=== PATIENT | female | born 1995 | race Caucasian/White ===

== ENCOUNTER 2021-05-01 05:45 | Emergency (ER) | payer OTHER, SELFPAY ==
[2021-05-01 06:28] VITALS: BP 112/60; PULSE 72; RESP 18; TEMP 36.8; O2SAT 100; BMI 30.2
--- NOTE | 2021-05-01 06:38 | ED_ITS ---
HPI - Female Genitourinary General Chief complaint: Urogenital-Female Stated complaint: uro-genital, abd pain Time Seen by Provider: 05/01/21 06:38 Source: patient Mode of arrival: ambulatory Limitations: no limitations History of Present Illness MD elicited complaint: vaginal bleeding, pelvic pain and other (burning tingling in vaginal area) Onset (ago): day(s) (7) Severity: mild Quality of pain: dull Consistency: intermittent Vaginal discharge: none Vaginal bleeding: scant Exacerbating factors: none Relieving factors: none Associated symptoms: denies other symptoms Treatment prior to arrival: none Sexual activity: Yes Related Data Previous Rx's Medication Instructions Recorded doxycycline hyclate 100 mg capsule 100 mg PO BID 7 Days #14 cap 05/01/21 fluconazole 150 mg tablet 150 mg PO DAILY #1 tab 05/01/21 (Diflucan) nitrofurantoin 100 mg PO BID 5 Days #10 cap 05/01/21 monohydrate/macrocrystals 100 mg capsule (Macrobid) ondansetron 4 mg disintegrating 4 mg PO Q8H PRN #20 tab 05/01/21 tablet Allergies Allergy/AdvReac Type Severity Reaction Status Date / Time morphine [MORPHINE] Allergy Unknown HIVES Verified 05/01/21 06:28 Review of Systems Review of Systems: Constitutional : No Fever, No Chills ENT/Mouth : No sore throat, No Rhinorrhea Eyes: No Eye Pain, No Swelling Cardiovascular : No Chest Pain, No SOB Respiratory : No Cough, No Sputum, No Wheezing Gastrointestinal : No Nausea, No Vomiting, No Diarrhea, No abdominal Pain, No Hematochezia, No Melena Genitourinary : No Dysuria, No Urinary Frequency, No Hematuria, pos scant irreg vag bleeding Musculoskeletal : No joint pain, No Myalgias, No Joint Swelling Skin : No Skin Lesions, No rash PMFSH Past Medical History Attestation statement: The following information was validated with the patient. Medical History No active medical problems Social History Social History Alcohol intake: current Alcohol intake frequency: a few times a month Patient Tobacco Use Status: Never used Tobacco Substance Use Type: Marijuana Substance Use Frequency: Occasionally Advance Directives: No Advance Directives Information Provided: Yes Patient : No Physical Exam Vital Signs: Vital Signs: Last Vital Signs Temp 98.3 F 05/01/21 06:28 Pulse 72 05/01/21 06:28 Resp 18 05/01/21 06:28 BP 112/60 05/01/21 06:28 Pulse Ox 100 05/01/21 06:28 Body Mass Index 30.2 Appearance: Alert. Oriented X3. No acute distress. Eyes: Pupils equal, round and reactive to light. ENT: Pharynx normal. Neck: Normal inspection. Neck supple. CVS: Normal heart rate and rhythm. Pulses normal. Respiratory: No respiratory distress. Breath sounds normal. Abdomen: Soft and nontender. Skin: Skin warm and dry. Normal skin color. Normal skin turgor. Extremities: No lower extremity edema. No calf ttp Neuro: Oriented X 3. No motor deficit. No sensory deficit. Course Course Course Narrative: neg test - proph treatment for STI MDM - Female Genitourinary MDM Narrative Medical decision making narrative: 26 yo female with no sig PMH here with vaginal tingling, irregular periods for 1 week - abdominal exam is soft and bening. Will obtain UA/UPT swab for STI - she does want treatment - this is pending UPT. Doubt ectopic/appendicitis/TOA. Lab Data Labs: Lab Results 05/01/21 05/01/21 Range/Units 06:57 06:57 Urine Color YELLOW Urine Appearance CLOUDY Urine pH 6.0 (5.0-8.0) Ur Specific [place] 1.025 (1.005-1.025) Urine Protein 1+ H (NEG-TRACE) MG/DL Urine Glucose (UA) NEG (NEG) MG/DL Urine Ketones NEG (NEG) MG/DL Urine Blood 1+ H (NEG) Urine Nitrite NEG (NEG) Ur Leukocyte Esterase 2+ H (NEG) Urine RBC 5-9 H (0) /HPF Urine WBC 76-150 H (0-4) /HPF Ur Squamous Epith Cells TRACE /LPF Urine Bacteria TRACE /LPF Urine Test NEGATIVE (NEGATIVE) Discharge Plan Discharge Clinical Impression: Vaginitis Qualifiers: Chronicity: acute Qualified Code(s): N76.0 - Acute vaginitis Urinary tract infection Qualifiers: Urinary tract infection type: acute cystitis Hematuria presence: with hematuria Qualified Code(s): N30.01 - Acute cystitis with hematuria Patient Disposition: Home, Self-Care Instructions: Sexually Transmitted Diseases (ED), Urinary Tract Infection in Women (ED) Additional Instructions: return to ED for any worsening symptoms or concerns your chlamydia and gonorrhea tests are pending, you have a urinary tract infection. you are being treated for possible STD as well as urine infection talk to your partner they should get tested too. if you both have an infection and are not treated you will pass it back and forth for more testing such as HIV, syphillis [facility] Prescriptions: New doxycycline hyclate 100 mg capsule 100 mg PO BID 7 Days Qty: 14 RF: 0 nitrofurantoin monohyd/m-cryst [Macrobid] 100 mg capsule 100 mg PO BID 5 Days Qty: 10 RF: 0 ondansetron 4 mg tablet,disintegrating 4 mg PO Q8H PRN (Reason: nausea and vomiting) Qty: 20 RF: 0 fluconazole [Diflucan] 150 mg tablet 150 mg PO DAILY Qty: 1 RF: 0 Stand Alone Forms: Work/School Release
[2021-05-01 07:10] LABS: Appearance Urine CLOUDY; Color Urine YELLOW; Glucose Urine UA NEG (NEG); Leukocyte Esterase Urine 2+ (NEG); Nitrite Urine NEG (NEG); Specific Gravity - Urine 1.025 (1.005-1.025); UACC Culture Trigger YES; Urine Blood 1+ (NEG); Urine Ketones NEG (NEG); Urine Protein 1+ MG/DL (NEG-TRACE)
[2021-05-01 07:13] LABS: UPreg QC Valid YES; Urine Pregnancy NEGATIVE (NEGATIVE)
[2021-05-01 07:25] LABS: Bacteria Urine TRACE /LPF; Squamous Epithelial Cell Urine TRACE /LPF
[2021-05-01] MEDS: cefTRIAXone sodium 500 MG, Lidocaine HCl 1 % MPF 1 ML IM (07:28)
[2021-05-01 09:59] LABS: CT PCR NOT DETECTED (Not Detect.); NG PCR NOT DETECTED (Not Detect.)
[2021-05-01 11:42] LABS: BV Int Neg Control Negative (Negative); BV Int Pos Control Positive (Positive)
== END 2021-05-01 07:39 | disposition home or self-care (01) ==
PROVIDERS: Emergency Provider Emergency Medicine
DX: N76.0 Acute vaginitis (principal); N30.01 Acute cystitis with hematuria; Z79.899 Other long term (current) drug therapy
CPT/HCPCS: 81001; 81025; 87086; 87088; 87186; 87480; 87491; 87510; 87591; 87660; 96372; 99284; J0696

== ENCOUNTER 2022-05-06 16:07 | Emergency (ER) | payer OTHER, SELFPAY ==
[2022-05-06 17:27] VITALS: BP 152/98; PULSE 75; RESP 18; TEMP 37.2; O2SAT 100; BMI 31.4
[2022-05-06 17:53] LABS: Appearance Urine Cloudy; Color Urine Yellow; Glucose Urine UA Negative (Negative); Leukocyte Esterase Urine Trace (Negative); Nitrite Urine Negative (Negative); PH 7.5 (5.0-9.0); UMIC TRIGGER UACC YES; Urine Blood Negative (Negative); Urine Ketones Trace mg/dL (Negative); Urine Protein Negative (Neg-Trace)
[2022-05-06 17:58] LABS: Bacteria Urine 1+ (None Seen); Hyaline Casts Urine 0-2 /LPF (0-2); RBC Urine 0-2 /HPF (0-2); WBC Urine 0-5 /HPF (0-5)
--- NOTE | 2022-05-06 18:39 | ED_ITS ---
HPI - Female Genitourinary General Chief complaint: Urogenital-Female Stated complaint: STD Check Time Seen by Provider: 05/06/22 16:41 Source: patient Mode of arrival: ambulatory Limitations: no limitations History of Present Illness HPI Narrative: This is a 27-year-old female presenting to the emergency department requesting STD testing. Patient tells me that for the past few days she feels as though her urine has been different foggy , she reports stinging, burning, and overall discomfort while urinating. Partner with similar sx. She tells me that her partner may have an STD, unsure which one. Denies fevers, chills, rash, nausea, vomiting, abdominal pain, chest pain, shortness of breath, vaginal bleeding and vaginal discharge Related Data Previous Rx's Medication Instructions Recorded doxycycline hyclate 100 mg capsule 100 mg PO BID 7 days #14 caps 05/01/21 fluconazole 150 mg tablet 150 mg PO DAILY #1 tab 05/01/21 (Diflucan) nitrofurantoin 100 mg PO BID 5 days #10 caps 05/01/21 monohydrate/macrocrystals 100 mg capsule (Macrobid) ondansetron 4 mg disintegrating 4 mg PO Q8H PRN nausea and 05/01/21 tablet vomiting #20 tabs metronidazole 500 mg tablet 500 mg PO BID 7 days #14 tabs 05/03/21 (Flagyl) doxycycline hyclate 100 mg capsule 100 mg PO BID 7 days #14 caps 05/06/22 metronidazole 500 mg tablet 500 mg PO BID 7 days #14 tabs 05/06/22 Allergies Allergy/AdvReac Type Severity Reaction Status Date / Time morphine [MORPHINE] Allergy Unknown HIVES Verified 05/01/21 06:28 Review of Systems Review of Systems: Constitutional : No Weight loss, No Fever, No Chills, No Fatigue, No Malaise ENT/Mouth : No sore throat, No Rhinorrhea Eyes: No Eye Pain, No Swelling, No Redness Cardiovascular : No Chest Pain, No SOB, No Dyspnea on Exertion, No Orthopnea, No Edema, No Palpitations Respiratory : No Cough, No Sputum, No Wheezing Gastrointestinal : No Nausea, No Vomiting, No Diarrhea, No Constipation, No abdominal Pain, No Hematochezia, No Melena Genitourinary : No Dysuria, No Urinary Frequency, No Hematuria, Musculoskeletal : No joint pain, No Myalgias, No Joint Swelling Skin : No Skin Lesions, No rash Neuro : No Weakness, No Numbness, No Dizziness, No Headache Psych : No Anxiety/Panic, No Depression All other systems reviewed and are negative Yes all other systems are reviewed and are negative [facility] Past Medical History Attestation statement: The following information was validated with the patient. Source: old records reviewed and nursing notes reviewed Medical History No active medical problems Social History Social History Alcohol intake: current Alcohol intake frequency: a few times a month Patient Tobacco Use Status: Never used Tobacco Substance Use Type: Marijuana Advance Directives: No Advance Directives Information Provided: No Physical Exam Vital Signs: Vital Signs: Last Vital Signs Temp 98.9 F 05/06/22 17:27 Pulse 75 05/06/22 17:27 Resp 18 05/06/22 17:27 BP 152/98 H 05/06/22 17:27 Pulse Ox 100 05/06/22 17:27 O2 Del Method 05/06/22 17:27 BMI result Body Mass Index 31.4 vss Appearance: Alert.? Oriented X3.? No acute distress.? Head: Normocephalic, atraumatic, no step-offs or deformities Eyes: Pupils equal, round and reactive to light.? Neck: Normal inspection.? Neck supple.? CVS: Normal heart rate and rhythm.? Pulses normal.? Respiratory: No respiratory distress.? Breath sounds normal.? Abdomen: Soft and nontender.? Skin: Skin warm and dry.? Normal skin color.? Normal skin turgor.? Extremities: No lower extremity edema.? No calf ttp. 5/5 strength to bilateral upper and lower extremities Neuro: Oriented X 3.? No motor deficit.? No sensory deficit. CN 2-12 intact Course Reevaluation(s) Reevaluation #1: No signs of UTI. Antibiotics were given here in the emergency department, patient tolerated well. At this time patient will be discharged home with antibiotics following CDC guidelines. Advised to return with new or worsening symptoms, outlined worrisome signs and symptoms on discharge. Comfortable discharge home with prompt PCP follow-up. Time: 18:45 MDM - Female Genitourinary MDM Narrative Medical decision making narrative: [birth year]39 27-year-old female presenting for STD testing, potential exposure. Unsure to which STD. Physical examination benign. Plan at this time is to order gonorrhea, chlamydia. Will treat prophylactically for gonorrhea, chlamydia, Trichomonas. Patient agrees to prophylactic treatment for gonorrhea, chlamydia and trichomonas. 500mg IM ceftriaxone has been given here and scripts for doxycycline 100 mg po BID X 7 days and metronidazole 500 mg po BID X 7 days have been given to the patient. Educated on safe sex practices, full pannel STD testing and speaking to? partners on possible STD. Medical Records Attestation: I reviewed the patient's medical records. Lab Data Attestation: I reviewed the patient's lab results. Labs: Lab Results 05/06/22 Range/Units 17:38 Urine Color Yellow Urine Appearance Cloudy Urine pH 7.5 (5.0-9.0) Ur Specific [place] 1.010 (1.005-1.025) Urine Protein Negative (Neg-Trace) mg/dL Urine Glucose (UA) Negative (Negative) mg/dL Urine Ketones Trace (Negative) mg/dL Urine Blood Negative (Negative) Urine Nitrite Negative (Negative) Ur Leukocyte Esterase Trace H (Negative) Urine RBC 0-2 (0-2) /HPF Urine WBC 0-5 (0-5) /HPF Ur Squamous Epith Cells 3-5 (0-2) /HPF Urine Bacteria 1+ (None Seen) Hyaline Casts 0-2 (0-2) /LPF Critical Care Time Critical Care Time Critical Care Time: No Discharge Plan Discharge Clinical Impression: Encounter for assessment of STD exposure Patient Disposition: Home, Self-Care Additional Instructions: Take your medications as prescribed. If you were prescribed antibiotics today, it is important that you take your medication to their entirety, do not skip any doses, do not finish them early. Follow-up with your primary care provider this week. Return to the emergency department with new or worsening symptoms. Such as fevers, chills, chest pain, shortness of breath, nausea, vomiting, dizziness, headache, vision changes, lethargy In case of emergency call 911 You were treated here today with ceftriaxone, a medication that treats go norrhea. I have sent to your pharmacy Metronidazole that covers trichomonas, and Doxycycline which covers for chlamydia. Please be reevaluated by a healthcare provider after completing your antibiotics. Do not stop them early, do not skip any doses. Until you are reevaluated by a health care provider please practice safe sex as disucussed. Please also have a conversation with your sexual partners.? I also advise you to obtain full panel STD testing to test for other STDs including HIV, Hepatitis B & C and syphilis with your PCP or a local clinic. Prescriptions: New doxycycline hyclate 100 mg capsule 100 mg PO BID 7 Days Qty: 14 0RF metronidazole 500 mg tablet 500 mg PO BID 7 Days Qty: 14 0RF No Action doxycycline hyclate 100 mg capsule 100 mg PO BID 7 Days Qty: 14 0RF nitrofurantoin monohyd/m-cryst [Macrobid] 100 mg capsule 100 mg PO BID 5 Days Qty: 10 0RF Rx Instructions: must administer with a meal/food ondansetron 4 mg tablet,disintegrating 4 mg PO Q8H PRN (Reason: nausea and vomiting) Qty: 20 0RF fluconazole [Diflucan] 150 mg tablet 150 mg PO DAILY Qty: 1 0RF Rx Instructions: take at end of antibiotics course if you develop a yeast infection metronidazole [Flagyl] 500 mg tablet 500 mg PO BID 7 Days Qty: 14 0RF Referrals: Physician,Unknown J [Primary Care Provider] - 2 days Stand Alone Forms: Work/School Release
[2022-05-06] MEDS: metroNIDAZOLE 500 MG TABLET PO (18:53)
[2022-05-06] MEDS: cefTRIAXone sodium 500 MG, Lidocaine HCl 1 % MPF 1 ML IM (18:53)
[2022-05-07 02:30] LABS: CT PCR NOT DETECTED (Not Detect.); NG PCR DETECTED (Not Detect.)
== END 2022-05-06 19:52 | disposition home or self-care (01) ==
PROVIDERS: Physician Assistant; Emergency Provider Student in an Organized Health Care Education/Training Program
DX: Z20.2 Contact with and (suspected) exposure to infections with a predominantly sexual mode of transmission (principal); Z79.899 Other long term (current) drug therapy
CPT/HCPCS: 81001; 87491; 87591; 96372; 99282; 99284; J0696

== ENCOUNTER 2022-08-30 20:09 | Emergency (ER) | payer OTHER, SELFPAY ==
--- NOTE | ~2022-08-30 | CT_ITS ---
EXAMINATION: CT ABDOMEN AND PELVIS WITH CONTRAST CLINICAL INFORMATION: Left flank pain. Cracker syndrome. COMPARISON: None TECHNIQUE: Multidetector volumetric images were obtained from the superior aspect of the liver through the pubic symphysis following administration 85 mL of Omnipaque 350 intravenous contrast. Sagittal and coronal reformatted images were obtained on the technologist's workstation. Oral contrast: No This CT examination was performed using dose optimization techniques as appropriate, variously including the following: *Automated exposure control *Adjustment of mA and/or kV according to patient size (this includes techniques or standardized protocols for targeted exams where dose is matched to indication/reason for exam; i.e. extremities or head) *Use of iterative reconstruction technique DLP: 582 mGy-cm FINDINGS: LUNG BASES: The visualized lung bases are unremarkable. LIVER, GALLBLADDER, AND BILIARY TREE: The liver is normal in size, shape, and attenuation. No focal hepatic lesion or biliary ductal dilatation is present. Cholecystectomy. PANCREAS: Unremarkable. SPLEEN: Unremarkable. ADRENAL GLANDS: Unremarkable. KIDNEYS AND URETERS: The kidneys are normal in size, shape, and attenuation. No hydronephrosis, hydroureter, or calculi seen. No perinephric stranding. BLADDER: Unremarkable. GASTROINTESTINAL TRACT: The small and large bowel are unremarkable. The appendix is unremarkable. ABDOMINAL WALL: No significant hernia is appreciated. LYMPH NODES: Normal. VASCULAR: Normal caliber aorta. Prominent appearance of the pelvic vasculature, left greater than right.. There is narrowing of the left renal vein as it crosses the midline. PELVIC VISCERA: The uterus and adnexa are unremarkable. OSSEOUS STRUCTURES: No acute or suspicious osseous abnormality. CT/CT abdomen pelvis w IV con IMPRESSION: 1. No acute findings in the abdomen or pelvis. No hydronephrosis or nephrolithiasis. 2. Prominent appearance of the pelvic vasculature, left greater than right. There is also narrowing of the left renal vein crossing the midline. This is consistent with the clinical history of nutcracker syndrome. Fleischner guidelines were followed.
[2022-08-30 20:25] VITALS: BP 137/62; PULSE 60; RESP 16; TEMP 36.7; O2SAT 98; BMI 31.4
--- NOTE | 2022-08-30 20:30 | ECG_ITS ---
Test Reason : ABD PAIN Blood Pressure : / mmHG Vent. Rate : 058 BPM Atrial Rate : 058 BPM P-R Int : 148 ms QRS Dur : 076 ms QT Int : 462 ms P-R-T Axes : 031 037 042 degrees QTc Int : 453 ms Sinus bradycardia with Premature atrial complexes Otherwise normal ECG No previous ECGs available Referred By: Lucio Isbell Electronically Signed By:BRADY FUCHS MD
--- NOTE | 2022-08-30 20:32 | ED_ITS ---
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 been followed by with [facility] supposed to be evaluated by vascular comes here for off and on pain in the left flank area today since morning pain is not going away associated with nausea no vomiting pain is similar that in the past patient denies any hematuria <Jesús Shen MD - Last Filed: 08/31/22 01:04> Related Data Home medications: Previous Rx's Medication Instructions Recorded doxycycline hyclate 100 mg capsule 100 mg PO BID 7 days #14 caps 05/01/21 fluconazole 150 mg tablet 150 mg PO DAILY #1 tab 05/01/21 (Diflucan) nitrofurantoin 100 mg PO BID 5 days #10 caps 05/01/21 monohydrate/macrocrystals 100 mg capsule (Macrobid) ondansetron 4 mg disintegrating 4 mg PO Q8H PRN nausea and 05/01/21 tablet vomiting #20 tabs metronidazole 500 mg tablet 500 mg PO BID 7 days #14 tabs 05/03/21 (Flagyl) doxycycline hyclate 100 mg capsule 100 mg PO BID 7 days #14 caps 05/06/22 metronidazole 500 mg tablet 500 mg PO BID 7 days #14 tabs 05/06/22 tramadol 50 mg tablet 50 mg PO Q6H PRN pain #20 tabs 08/31/22 <VERONICA Shetty - Last Filed: 08/31/22 11:41> Allergies/adverse reactions: Allergies Allergy/AdvReac Type Severity Reaction Status Date / Time morphine [MORPHINE] Allergy Unknown HIVES Verified 05/01/21 06:28 <VERONICA Shetty - Last Filed: 08/31/22 11:41> Review of Systems Review of Systems: Yes all other systems are reviewed and are negative <Jesús Shen MD - Last Filed: 08/31/22 01:04> [facility], [facility] Past Medical History Medical History: Medical History No active medical problems <VERONICA Shetty - Last Filed: 08/31/22 11:41> Social History Social History: Social History Alcohol intake: current Alcohol intake frequency: a few times a month Patient Tobacco Use Status: Never used Tobacco Substance Use Type: Marijuana Advance Directives: No Advance Directives Information Provided: No <VERONICA Shetty - Last Filed: 08/31/22 11:41> Physical Exam ED Vital Signs: Vital Signs - 24 hr 08/30/22 20:25 Temperature 98.0 F Pulse Rate 60 Respiratory Rate 16 Blood Pressure 137/62 Pulse Oximetry 98 Oxygen Delivery Method Room Air BMI result Body Mass Index 31.4 <VERONICA Shetyt - Last Filed: 08/31/22 11:41> Vital Signs - 24 hr 08/30/22 20:25 Temperature 98.0 F Pulse Rate 60 Respiratory Rate 16 Blood Pressure 137/62 Pulse Oximetry 98 Oxygen Delivery Method Room Air BMI result Body Mass Index 31.4 <Jesús Shen MD - Last Filed: 08/31/22 01:04> Appearance: Alert. Oriented X3. In moderate distress Eyes: PERRLA, No Nystagmus ENT: Pharynx normal. Oral Mucosa moist Neck: Normal inspection. Neck supple. CVS: Normal heart rate and rhythm. Pulses normal. Respiratory: No respiratory distress. Equal air entry bilateral, no whe ezing/rales/rhonchi Abdomen: Soft, tenderness left upper quadrant. Bowel sounds are present, no ma ss palpable, L CVA tenderness Skin: Skin warm and dry. Normal skin color. Normal skin turgor. Extremities: No lower extremity edema. No calf tenderness Neuro: Oriented X 3. No motor deficit. <Jesús Shen MD - Last Filed: 08/31/22 01:04> Course Course Course Narrative: RME: 27 yold female presents to the ED for epigastric pain radiating to l eft kidney. labs and EkG ordereed <VERONICA Shetty - Last Filed: 08/31/22 11:41> Medications Administered Discontinued Medications Generic Name Dose Route Start Last Admin Trade Name Freq PRN Reason Stop Dose Admin Sodium Chloride 1,000 mls @ 999 mls/hr 08/30/22 23:00 08/30/22 23:08 Ns IV 08/31/22 00:00 999 mls/hr .Q1H1M ONE Administration Iohexol 85 ml 08/30/22 23:50 08/30/22 23:51 Iohexol 350 Mg/Ml 100 Ml Infus..Btl IV 08/30/22 23:51 85 ml ONCE ONE Administration Ketorolac Tromethamine 30 mg 08/30/22 23:00 08/30/22 23:11 Ketorolac Tromethamine 30 Mg/Ml Vial IVPUSH 08/30/22 23:01 30 mg ONCE ONE Administration Ondansetron HCl 4 mg 08/30/22 23:00 08/30/22 23:11 Ondansetron Hcl 4 Mg/2 Ml Vial IVPUSH 08/30/22 23:01 4 mg ONCE ONE Administration <VERONICA Shetty - Last Filed: 08/31/22 11:41> Medications Administered Discontinued Medications Generic Name Dose Route Start Last Admin Trade Name Freq PRN Reason Stop Dose Admin Sodium Chloride 1,000 mls @ 999 mls/hr 08/30/22 23:00 08/30/22 23:08 Ns IV 08/31/22 00:00 999 mls/hr .Q1H1M ONE Administration Iohexol 85 ml 08/30/22 23:50 08/30/22 23:51 Iohexol 350 Mg/Ml 100 Ml Infus..Btl IV 08/30/22 23:51 85 ml ONCE ONE Administration Ketorolac Tromethamine 30 mg 08/30/22 23:00 08/30/22 23:11 Ketorolac Tromethamine 30 Mg/Ml Vial IVPUSH 08/30/22 23:01 30 mg ONCE ONE Administration Ondansetron HCl 4 mg 08/30/22 23:00 08/30/22 23:11 Ondansetron Hcl 4 Mg/2 Ml Vial IVPUSH 08/30/22 23:01 4 mg ONCE ONE Administration <Jesús Shen MD - Last Filed: 08/31/22 01:04> Medical Decision Making Medical Decision Making [facility] Narrative: Patient feeling much better at this time CT scan showed slight narrowing of left renal vein. Patient advised to follow-up with vascular surgeon as scheduled <Jesús Shen MD - Last Filed: 08/31/22 01:04> Lab Data [facility] Lab Attestation statement: I reviewed the patient's lab results. <Jesús Shen MD - Last Filed: 08/31/22 01:04> Result Diagrams: 08/30/22 22:56 08/30/22 22:56 <VERONICA Shetty - Last Filed: 08/31/22 11:41> Labs: Lab Results 08/30/22 08/30/22 08/30/22 Range/Units 22:52 22:52 22:56 WBC 8.5 (4.8-10.8) X10*3/uL RBC 4.29 (4.20-5.50) X10*6/uL Hgb 13.4 (12.0-16.0) g/dl Hct 40.8 (37.0-47.0) % MCV 95.1 (80.0-98.0) fL MCH 31.2 (27.0-33.0) pg MCHC 32.8 (31.0-35.0) g/dl RDW 13.2 (11.0-16.0) % Plt Count 236 (160-400) X10*3/uL MPV 10.4 (9.4-12.3) fL Immature Gran % (Auto) 0.4 (0.0-0.4) % Neut % (Auto) 69.8 (45-73) % Lymph % (Auto) 22.5 (20-40) % [place] % (Auto) 6.2 (2-11) % Eos % (Auto) 0.6 (0-4) % Baso % (Auto) 0.5 (0-2) % Lymph # (Auto) 1.9 (1.2-4.9) X10*3/uL [place] # (Auto) 0.5 (0.1-1.2) X10*3/uL Eos # (Auto) 0.1 (0.0-0.4) X10*3/uL Baso # (Auto) 0.0 (0.0-0.2) X10*3/uL Abs Immat Gran (auto) 0.03 (0.00-0.03) X10*3/uL Absolute Neuts (auto) 6.0 (2.0-8.3) x10*3/uL Absolute Nucleated RBC 0.000 (0.0-0.012) X10*3/uL Nucleated RBC % (auto) 0.0 (0.0-0.2) /100WBC PT (10.0-13.1) SEC INR (0.9-1.1) APTT (26.0-36.4) SEC Sodium (135-145) mmol/L Potassium (3.3-5.1) mmol/L Chloride (96-108) mmol/L Carbon Dioxide (22-29) mmol/L Anion Gap (12-20) BUN (9-16) mg/dL Creatinine (0.5-1.4) mg/dL Estim Creat Clear Calc Estimated GFR Random Glucose (60-115) mg/dL Calcium (8.4-10.2) mg/dL Total Bilirubin (0.0-1.0) mg/dL AST (5-31) U/L ALT (0-31) U/L Alkaline Phosphatase (39-117) U/L Troponin I High Sens (<3.5-17.0) ng/L Total Protein (6.5-8.0) g/dL Albumin (3.5-5.0) g/dL Urine Color Yellow Urine Appearance Turbid Urine pH 7.0 (5.0-9.0) Ur Specific [place] 1.020 (1.005-1.025) Urine Protein Negative (Neg-Trace) mg/dL Urine Glucose (UA) Negative (Negative) mg/dL Urine Ketones Negative (Negative) mg/dL Urine Blood Negative (Negative) Urine Nitrite Negative (Negative) Ur Leukocyte Esterase Small (1+) H (Negative) Urine RBC 0-2 (0-2) /HPF Urine WBC 6-10 H (0-5) /HPF Ur Squamous Epith Cells 3-5 (0-2) /HPF Urine Bacteria Trace (None Seen) Hyaline Casts 0-2 (0-2) /LPF Urine Test NEGATIVE (NEGATIVE) 08/30/22 08/30/22 08/30/22 Range/Units 22:56 22:56 22:56 WBC (4.8-10.8) X10*3/uL RBC (4.20-5.50) X10*6/uL Hgb (12.0-16.0) g/dl Hct (37.0-47.0) % MCV (80.0-98.0) fL MCH (27.0-33.0) pg MCHC (31.0-35.0) g/dl RDW (11.0-16.0) % Plt Count (160-400) X10*3/uL MPV (9.4-12.3) fL Immature Gran % (Auto) (0.0-0.4) % Neut % (Auto) (45-73) % Lymph % (Auto) (20-40) % [place] % (Auto) (2-11) % Eos % (Auto) (0-4) % Baso % (Auto) (0-2) % Lymph # (Auto) (1.2-4.9) X10*3/uL [place] # (Auto) (0.1-1.2) X10*3/uL Eos # (Auto) (0.0-0.4) X10*3/uL Baso # (Auto) (0.0-0.2) X10*3/uL Abs Immat Gran (auto) (0.00-0.03) X10*3/uL Absolute Neuts (auto) (2.0-8.3) x10*3/uL Absolute Nucleated RBC (0.0-0.012) X10*3/uL Nucleated RBC % (auto) (0.0-0.2) /100WBC PT 11.3 (10.0-13.1) SEC INR 1.0 (0.9-1.1) APTT 33.6 (26.0-36.4) SEC Sodium 138 (135-145) mmol/L Potassium 4.2 (3.3-5.1) mmol/L Chloride 105 (96-108) mmol/L Carbon Dioxide 26 (22-29) mmol/L Anion Gap 11 L (12-20) BUN 9 (9-16) mg/dL Creatinine 0.70 (0.5-1.4) mg/dL Estim Creat Clear Calc 107.7 Estimated GFR > 60 Random Glucose 103 (60-115) mg/dL Calcium 9.2 (8.4-10.2) mg/dL Total Bilirubin 0.8 (0.0-1.0) mg/dL AST 25 (5-31) U/L ALT 21 (0-31) U/L Alkaline Phosphatase 69 (39-117) U/L Troponin I High Sens < 3.5 (<3.5-17.0) ng/L Total Protein 7.4 (6.5-8.0) g/dL Albumin 4.2 (3.5-5.0) g/dL Urine Color Urine Appearance Urine pH (5.0-9.0) Ur Specific [place] (1.005-1.025) Urine Protein (Neg-Trace) mg/dL Urine Glucose (UA) (Negative) mg/dL Urine Ketones (Negative) mg/dL Urine Blood (Negative) Urine Nitrite (Negative) Ur Leukocyte Esterase (Negative) Urine RBC (0-2) /HPF Urine WBC (0-5) /HPF Ur Squamous Epith Cells (0-2) /HPF Urine Bacteria (None Seen) Hyaline Casts (0-2) /LPF Urine Test (NEGATIVE) <VERONICA Shetty - Last Filed: 08/31/22 11:41> Lab Results 08/30/22 08/30/22 08/30/22 Range/Units 22:52 22:52 22:56 WBC 8.5 (4.8-10.8) X10*3/uL RBC 4.29 (4.20-5.50) X10*6/uL Hgb 13.4 (12.0-16.0) g/dl Hct 40.8 (37.0-47.0) % MCV 95.1 (80.0-98.0) fL MCH 31.2 (27.0-33.0) pg MCHC 32.8 (31.0-35.0) g/dl RDW 13.2 (11.0-16.0) % Plt Count 236 (160-400) X10*3/uL MPV 10.4 (9.4-12.3) fL Immature Gran % (Auto) 0.4 (0.0-0.4) % Neut % (Auto) 69.8 (45-73) % Lymph % (Auto) 22.5 (20-40) % [place] % (Auto) 6.2 (2-11) % Eos % (Auto) 0.6 (0-4) % Baso % (Auto) 0.5 (0-2) % Lymph # (Auto) 1.9 (1.2-4.9) X10*3/uL [place] # (Auto) 0.5 (0.1-1.2) X10*3/uL Eos # (Auto) 0.1 (0.0-0.4) X10*3/uL Baso # (Auto) 0.0 (0.0-0.2) X10*3/uL Abs Immat Gran (auto) 0.03 (0.00-0.03) X10*3/uL Absolute Neuts (auto) 6.0 (2.0-8.3) x10*3/uL Absolute Nucleated RBC 0.000 (0.0-0.012) X10*3/uL Nucleated RBC % (auto) 0.0 (0.0-0.2) /100WBC PT (10.0-13.1) SEC INR (0.9-1.1) APTT (26.0-36.4) SEC Sodium (135-145) mmol/L Potassium (3.3-5.1) mmol/L Chloride (96-108) mmol/L Carbon Dioxide (22-29) mmol/L Anion Gap (12-20) BUN (9-16) mg/dL Creatinine (0.5-1.4) mg/dL Estim Creat Clear Calc Estimated GFR Random Glucose (60-115) mg/dL Calcium (8.4-10.2) mg/dL Total Bilirubin (0.0-1.0) mg/dL AST (5-31) U/L ALT (0-31) U/L Alkaline Phosphatase (39-117) U/L Troponin I High Sens (<3.5-17.0) ng/L Total Protein (6.5-8.0) g/dL Albumin (3.5-5.0) g/dL Urine Color Yellow Urine Appearance Turbid Urine pH 7.0 (5.0-9.0) Ur Specific [place] 1.020 (1.005-1.025) Urine Protein Negative (Neg-Trace) mg/dL Urine Glucose (UA) Negative (Negative) mg/dL Urine Ketones Negative (Negative) mg/dL Urine Blood Negative (Negative) Urine Nitrite Negative (Negative) Ur Leukocyte Esterase Small (1+) H (Negative) Urine RBC 0-2 (0-2) /HPF Urine WBC 6-10 H (0-5) /HPF Ur Squamous Epith Cells 3-5 (0-2) /HPF Urine Bacteria Trace (None Seen) Hyaline Casts 0-2 (0-2) /LPF Urine Test NEGATIVE (NEGATIVE) 08/30/22 08/30/22 08/30/22 Range/Units 22:56 22:56 22:56 WBC (4.8-10.8) X10*3/uL RBC (4.20-5.50) X10*6/uL Hgb (12.0-16.0) g/dl Hct (37.0-47.0) % MCV (80.0-98.0) fL MCH (27.0-33.0) pg MCHC (31.0-35.0) g/dl RDW (11.0-16.0) % Plt Count (160-400) X10*3/uL MPV (9.4-12.3) fL Immature Gran % (Auto) (0.0-0.4) % Neut % (Auto) (45-73) % Lymph % (Auto) (20-40) % [place] % (Auto) (2-11) % Eos % (Auto) (0-4) % Baso % (Auto) (0-2) % Lymph # (Auto) (1.2-4.9) X10*3/uL [place] # (Auto) (0.1-1.2) X10*3/uL Eos # (Auto) (0.0-0.4) X10*3/uL Baso # (Auto) (0.0-0.2) X10*3/uL Abs Immat Gran (auto) (0.00-0.03) X10*3/uL Absolute Neuts (auto) (2.0-8.3) x10*3/uL Absolute Nucleated RBC (0.0-0.012) X10*3/uL Nucleated RBC % (auto) (0.0-0.2) /100WBC PT 11.3 (10.0-13.1) SEC INR 1.0 (0.9-1.1) APTT 33.6 (26.0-36.4) SEC Sodium 138 (135-145) mmol/L Potassium 4.2 (3.3-5.1) mmol/L Chloride 105 (96-108) mmol/L Carbon Dioxide 26 (22-29) mmol/L Anion Gap 11 L (12-20) BUN 9 (9-16) mg/dL Creatinine 0.70 (0.5-1.4) mg/dL Estim Creat Clear Calc 107.7 Estimated GFR > 60 Random Glucose 103 (60-115) mg/dL Calcium 9.2 (8.4-10.2) mg/dL Total Bilirubin 0.8 (0.0-1.0) mg/dL AST 25 (5-31) U/L ALT 21 (0-31) U/L Alkaline Phosphatase 69 (39-117) U/L Troponin I High Sens < 3.5 (<3.5-17.0) ng/L Total Protein 7.4 (6.5-8.0) g/dL Albumin 4.2 (3.5-5.0) g/dL Urine Color Urine Appearance Urine pH (5.0-9.0) Ur Specific [place] (1.005-1.025) Urine Protein (Neg-Trace) mg/dL Urine Glucose (UA) (Negative) mg/dL Urine Ketones (Negative) mg/dL Urine Blood (Negative) Urine Nitrite (Negative) Ur Leukocyte Esterase (Negative) Urine RBC (0-2) /HPF Urine WBC (0-5) /HPF Ur Squamous Epith Cells (0-2) /HPF Urine Bacteria (None Seen) Hyaline Casts (0-2) /LPF Urine Test (NEGATIVE) <Jesús Shen MD - Last Filed: 08/31/22 01:04> Discharge Plan Discharge Clinical Impression: Renal colic on left side <VERONICA Shetty - Last Filed: 08/31/22 11:41> Patient Disposition: Home, Self-Care <VERONICA Shetty - Last Filed: 08/31/22 11:41> Instructions: Renal Colic (ED) <VERONICA Shetty - Last Filed: 08/31/22 11:41> Additional Instructions: Drink plenty of fluids Take pain medication as prescribed Follow-up with vascular surgeon as scheduled <VERONICA Shetty - Last Filed: 08/31/22 11:41> Prescriptions: New tramadol 50 mg tablet 50 mg PO Q6H PRN (Reason: pain) Qty: 20 0RF No Action doxycycline hyclate 100 mg capsule 100 mg PO BID 7 Days Qty: 14 0RF nitrofurantoin monohyd/m-cryst [Macrobid] 100 mg capsule 100 mg PO BID 5 Days Qty: 10 0RF Rx Instructions: must administer with a meal/food ondansetron 4 mg tablet,disintegrating 4 mg PO Q8H PRN (Reason: nausea and vomiting) Qty: 20 0RF fluconazole [Diflucan] 150 mg tablet 150 mg PO DAILY Qty: 1 0RF Rx Instructions: take at end of antibiotics course if you develop a yeast infection metronidazole [Flagyl] 500 mg tablet 500 mg PO BID 7 Days Qty: 14 0RF doxycycline hyclate 100 mg capsule 100 mg PO BID 7 Days Qty: 14 0RF metronidazole 500 mg tablet 500 mg PO BID 7 Days Qty: 14 0RF <VERONICA Shetty - Last Filed: 08/31/22 11:41> Interventions: ED Discharge Assessment Last Done: 08/31/22 00:44 <VERONICA Shetty - Last Filed: 08/31/22 11:41> Discharge Date/Time: 08/31/22 00:44 <VERONICA Shetty - Last Filed: 08/31/22 11:41>
--- OUTSIDE RECORDS SUMMARY | 2022-08-30 22:55 | XMS_ITS ---
:1995 Author Care Team Providers Name Role Phone Elmer Ventura Primary Care Provider Unavailable Allergies None recorded. Medications Name Status Start Date Stop Date ? ? Mapap (acetaminophen) 325 mg tablet Active ? Not available 19 29 mg iron-1 mg chewable tablet Active ? Not available gummies/dha & folic acid 0.4-32.5 mg chew Active ? Not available Plus (calcium carbonate) 27 mg iron-1 mg tablet Active ? Not available promethazine 25 mg tablet Active ? Not av ailable Vitamin B-6 25 mg tablet Active ? Not neha ilable Problems None recorded. Procedures None recorded. Results Lab Results None recorded. Past Encounters None recorded. Social History None recorded. Vaccine List None recorded. Plan of Care Reminders Provider Appointments None recorded. ? ? Lab None recorded. ? ? Referral None recorded. ? ? Procedures None recorded. ? ? Surgeries None recorded. ? ? Imaging None recorded. ? ? Vitals None recorded.
[2022-08-30] MEDS: 0.9 % Sodium Chloride 1,000 ML 999 ML IV (23:08)
[2022-08-30 23:09] LABS: MANUAL DIFF FLAG NO
[2022-08-30 23:10] LABS: Basophils Percent Auto 0.5 % (0-2); Eosinophils Absolute Auto 0.1 X10*3/uL (0.0-0.4); Eosinophils Percent Auto 0.6 % (0-4); Hematocrit 40.8 % (37.0-47.0); Hemoglobin 13.4 g/dl (12.0-16.0); Imm Gran Abs Auto 0.03 X10*3/uL (0.00-0.03); Imm Gran Pct Auto 0.4 % (0.0-0.4); Lymphocytes Absolute Auto 1.9 X10*3/uL (1.2-4.9); Lymphocytes Percent Auto 22.5 % (20-40); Mean Corpuscular HGB Conc 32.8 g/dl (31.0-35.0); Mean Corpuscular Hemoglobin 31.2 pg (27.0-33.0); Mean Corpuscular Volume 95.1 fL (80.0-98.0); Mean Platelet Volume 10.4 fL (9.4-12.3); Monocytes Absolute Auto 0.5 X10*3/uL (0.1-1.2); Monocytes Percent Auto 6.2 % (2-11); Neutrophils Percent Auto 69.8 % (45-73); Platelet Count 236 X10*3/uL (160-400); Red Blood Count 4.29 X10*6/uL (4.20-5.50); Red Cell Distribution Width 13.2 % (11.0-16.0); White Blood Count 8.5 X10*3/uL (4.8-10.8)
[2022-08-30] MEDS: Ketorolac Tromethamine 30 MG/ML VIAL IVPUSH (23:11)
[2022-08-30] MEDS: ondansetron HCL 4 MG/2 ML VIAL IVPUSH (23:11)
[2022-08-30 23:12] LABS: Appearance Urine Turbid; Color Urine Yellow; Glucose Urine UA Negative (Negative); Leukocyte Esterase Urine Small (1+) (Negative); Nitrite Urine Negative (Negative); UMIC TRIGGER UACC YES; Urine Blood Negative (Negative); Urine Ketones Negative (Negative); Urine Protein Negative (Neg-Trace)
[2022-08-30 23:15] LABS: Bacteria Urine Trace (None Seen); Hyaline Casts Urine 0-2 /LPF (0-2); RBC Urine 0-2 /HPF (0-2); UACC Culture Trigger YES
[2022-08-30 23:16] LABS: UPreg QC Valid YES; Urine Pregnancy NEGATIVE (NEGATIVE)
[2022-08-30 23:16] LABS: Prothrombin Time 11.3 SEC (10.0-13.1)
[2022-08-30 23:18] LABS: Partial Thromboplastin Time 33.6 SEC (26.0-36.4)
[2022-08-30 23:25] LABS: Alanine Aminotransferase 21 U/L (0-31); Albumin Level 4.2 g/dL (3.5-5.0); Alkaline Phosphatase 69 U/L (39-117); Anion Gap 11 (12-20); Aspartate Amino Transferase 25 U/L (5-31); Bilirubin Total 0.8 mg/dL (0.0-1.0); Blood Urea Nitrogen 9 mg/dL (9-16); Calcium 9.2 mg/dL (8.4-10.2); Carbon Dioxide 26 mmol/L (22-29); Chloride 105 mmol/L (96-108); Creatinine Clr Calc Pharmacy 107.7; Estimated Glomerular Filt Rate > 60; Glucose Random 103 mg/dL (60-115); Potassium 4.2 mmol/L (3.3-5.1); Sodium 138 mmol/L (135-145); Total Protein 7.4 g/dL (6.5-8.0)
[2022-08-30 23:33] LABS: Troponin-I High Sensitivity < 3.5 ng/L (<3.5-17.0)
[2022-08-30] MEDS: iohexoL 350 MG/ML 100 ML INFUS..BTL 85 ML IV (23:51)
== END 2022-08-31 00:44 | disposition home or self-care (01) ==
PROVIDERS: Physician Assistant; Emergency Provider Internal Medicine
DX: N23 Unspecified renal colic (principal); K22.4 Dyskinesia of esophagus; F12.90 Cannabis use, unspecified, uncomplicated; Z79.899 Other long term (current) drug therapy
CPT/HCPCS: 36415; 74177; 80053; 81001; 81025; 84484; 85025; 85610; 85730; 87086; 93005; 96374; 96375; 99284; J1885; J2405; Q9967

== ENCOUNTER 2023-03-03 07:57 | Emergency (ER) | payer OTHER, SELFPAY ==
[2023-03-03 07:58] VITALS: BP 118/63; PULSE 67; RESP 16; TEMP 36.6; O2SAT 100; BMI 30.4
[2023-03-03 09:58] LABS: CT PCR NOT DETECTED (Not Detect.); NG PCR NOT DETECTED (Not Detect.)
[2023-03-03 10:00] VITALS: BP 121/62; PULSE 68; RESP 16; TEMP 36.6; O2SAT 99
[2023-03-03 10:00] LABS: Appearance Urine Turbid; Color Urine Yellow; Glucose Urine UA Negative (Negative); Leukocyte Esterase Urine Negative (Negative); Nitrite Urine Negative (Negative); PH 8.5 (5.0-9.0); Specific Gravity - Urine 1.015 (1.005-1.025); Urine Blood Negative (Negative); Urine Ketones 40 mg/dL (Negative); Urine Protein Trace mg/dL (Neg-Trace)
[2023-03-03 10:01] LABS: UPreg QC Valid YES; Urine Pregnancy POSITIVE (NEGATIVE)
--- NOTE | 2023-03-03 10:08 | PC.NURSE ---
internal exam performed by provider with student, urine and swabs obtained per order
--- NOTE | 2023-03-03 10:55 | ED_ITS ---
HPI - Female Genitourinary General Chief complaint: Urogenital-Female Stated complaint: std? Time Seen by Provider: 03/03/23 09:10 Source: patient Mode of arrival: ambulatory Limitations: no limitations History of Present Illness HPI Narrative: 28-year-old female who is set of twins and 1 prior miscarriage currently 17 weeks and 3 days currently being followed by by [facility] OBGYN presenting to the ER with complaints of 2-3 days of white/ yellow nonodorous discharge with cloudy urine. Reports that she has had STDs in the past gonorrhea and is concerned she might have an STD. She reports my baby piyush is dirty . Reports that she recently had intercourse with him on Tuesday. Otherwise she denies any fevers, chills, chest pain or shortness of breath, congestion, cough, eye drainage / redness or pain, abdominal pain, suprapubic abdominal pain, flank pain, back pain, dysuria hematuria, vaginal bleeding, gush of fluid, itching to the vaginal area, malodorous discharge, diarrhea constipation, rashes or lesions to the vaginal area or any other symptoms complaints or concerns at this time. MD elicited complaint: vaginal discharge and possible STD Pertinent past history: STI/STD ( Gonorrhea in the past) and prior miscarriages Onset (ago): day(s) (2-3) Location of symptoms: vaginal Consistency: constant Vaginal discharge: white, yellow and creamy Vaginal bleeding: none Exacerbating factors: none Relieving factors: none Associated symptoms: denies other symptoms Treatment prior to arrival: none Sexual activity: Yes and Known STD Exposure Patient : Yes Related Data : 5 Para: 4 Total number of abortions (spontaneous and elective): 1 Previous Rx's Medication Instructions Recorded doxycycline hyclate 100 mg capsule 100 mg PO BID 7 days #14 caps 05/01/21 fluconazole 150 mg tablet 150 mg PO DAILY #1 tab 05/01/21 (Diflucan) nitrofurantoin 100 mg PO BID 5 days #10 caps 05/01/21 monohydrate/macrocrystals 100 mg capsule (Macrobid) ondansetron 4 mg disintegrating 4 mg PO Q8H PRN nausea and 05/01/21 tablet vomiting #20 tabs metronidazole 500 mg tablet 500 mg PO BID 7 days #14 tabs 05/03/21 (Flagyl) doxycycline hyclate 100 mg capsule 100 mg PO BID 7 days #14 caps 05/06/22 metronidazole 500 mg tablet 500 mg PO BID 7 days #14 tabs 05/06/22 tramadol 50 mg tablet 50 mg PO Q6H PRN pain #20 tabs 09/01/22 metronidazole 500 mg tablet 500 mg PO Q12H 7 days #14 tabs 03/03/23 terconazole 0.8 % vaginal cream 1 appful vaginal BEDTIME 3 days 03/03/23 #20 grams Allergies Allergy/AdvReac Type Severity Reaction Status Date / Time morphine [MORPHINE] Allergy Unknown HIVES Verified 03/03/23 08:03 Review of Systems Review of Systems: Constitutional : No Fever, No Chills ENT/Mouth : No sore throat, No Rhinorrhea Eyes: No Eye Pain, No Redness Cardiovascular : No Chest Pain, No SOB Respiratory : No Cough, No Sputum, No Wheezing Gastrointestinal : No Nausea, No Vomiting, No Diarrhea, No abdominal pain, Genitourinary : + abnormal vaginal discharge, No irregular bleeding, No Dysuria, No Urinary Frequency, No pelvic pain Musculoskeletal : No Myalgias Skin : No rash Neuro : No Weakness, No Headache Psych : No Anxiety/Panic, No Depression Heme/Lymph: No bruising, No Lymphadenopathy Endocrine : No Polyuria, No Polydipsia Yes all other systems are reviewed and are negative [facility] Past Medical History Attestation statement: The following information was validated with the patient. Source: old records reviewed and nursing notes reviewed Medical History No active medical problems : 5 Para: 4 Total number of abortions (spontaneous and elective): 1 Social History Social History Alcohol intake: never Patient Tobacco Use Status: Never used Tobacco Substance Use Type: Marijuana Physical Exam Vital Signs: Vital Signs: Last Vital Signs Temp 97.8 F 03/03/23 10:00 Pulse 68 03/03/23 10:00 Resp 16 03/03/23 10:00 BP 121/62 03/03/23 10:00 Pulse Ox 99 03/03/23 10:00 O2 Del Method Room Air 03/03/23 10:00 BMI result Body Mass Index 30.4 vital signs have been reviewed as normal and appeared to be correct. Blood pressure normal. Heart rate normal. Respiration rate normal. Temperature normal. Oxygen saturation normal. Appearance: Alert. Oriented X3. No acute distress. Head: Normal external exam. Normocephalic. Atraumatic. No [place] signs noted. No raccoon eyes noted Eyes: PERRLA. EOMI. Conjunctiva and sclera normal. Eyelids normal. ENT: EAC normal. TM's Normal. Pharynx normal. Uvula midline. Moist mucous membranes. No trismus noted. No drooling noted. No muffled voice noted. Neck: Normal inspection. Neck supple. FROM. No adenopathy. Thyroid Normal. No meningeal signs. No neck mass noted. CVS: Normal heart rate and rhythm. Heart sound normal. No murmurs noted. Pulses normal throughout. Respiratory: No respiratory distress. Painless inspiration. Breath sounds normal. No wheezes/rales/rhonchi noted. Chest nontender. No accessory muscle usage noted or decreased air movement noted. Abdomen: Soft and nontender. Bowel sounds normal in all 4 quadrants. No distention noted. No organomegaly noted. No visible injury noted. : Supervised by CLAY King. Normal external appearance of urethra. No lesions/lacerations or tenderness noted. Speculum exam normal appearance/palpation of vagina normal. although patient is noted to have thick white cottage cheese non odorous/yellow discharge. Otherwise no vaginal erythema. No foreign bodies noted. No vaginal laceration/lesions or active bleeding noted. No tissue present in vagina. No vaginal mass noted. No vaginal swelling noted. No vaginal tenderness noted. Normal appearance of cervix. Normal palpation of cervix. Cervical os is closed. No cervical lesion/mass. No Bartholin cyst noted. No cervical motion tenderness noted. Negative chandelier sign. Normal bimanual exam. Uterine size normal. Bladder normal to palpation. Uterine consistency normal. Normal cervical palpation. Uterine mobility normal. Uterine shape normal. Normal adnexa. Normal rectovaginal exam. Back: No CVA tenderness. Full range of motion noted. Skin: Skin warm and dry. Normal skin color. Normal skin turgor. No rashes/lesions/lacerations noted. Extremities: No lower extremity edema. Extremities exhibit normal range of motion. Extremities nontender. Neuro: Oriented X 3. No motor deficit. No sensory deficit. Reflexes normal. Course Course Course Narrative: 28-year-old female presenting to the ER she is currently 17 weeks and 3 days being followed by OBGYN at [facility] at by [place] presenting with complaints of vaginal discharge white/yellow in nature with cloudy urine over the past 2-3 days. Known exposure for STDs. Denies any OBGYN related complaints such as nausea vomiting, abdominal pain, flank pain, dysuria hematuria, abnormal vaginal bleeding, diarrhea, constipation, gush of fluid, foul odor to the discharge or itchiness or any lesions or rashes. On exam she does have some discharge concern for bacterial vaginosis versus yeast infection. Although non odorous therefore may likely be a yeast infection. also concern for gonorrhea chlamydia. I considered ectopic preg; ovarion torsion; incarc hernia; PID; & other med/surg emerg but the hx, exam & data did not support the diagnoses. Pt. advised that some diseases present atypically & the pt was given explicit DC instructions. Although we obtain a gonorrhea chlamydia swab and was negative. UA reveals some protein and ketones otherwise no evidence of UTI. Patient still positive for . heart tones 149. Therefore I discussed this case with Dr. Amauri Sam he reported that the patient can be treated for bacterial vaginosis and yeast with Flagyl p.o. and Terconazole. therefore at this time will DC home with both prescriptions and instructions return if any new or worsening symptoms and to follow-up with OBGYN/PCP. Patient understands agrees with this plan. Medical Decision Making Medical Decision Making [facility] Narrative: see course Differential Diagnosis Differential Diagnoses: The differential diagnosis associated with the presentation includes see course Consult Healthcare Provider Management of the patient was discussed with: Punch Operator Dr. Amauri SPENCER Lab Data [facility] Lab Attestation statement: I reviewed the patient's lab results. Labs: Lab Results 03/03/23 03/03/23 03/03/23 Range/Units 08:07 09:52 09:52 Urine Color Yellow Urine Appearance Turbid Urine pH 8.5 (5.0-9.0) Ur Specific [place] 1.015 (1.005-1.025) Urine Protein Trace (Neg-Trace) mg/dL Urine Glucose (UA) Negative (Negative) mg/dL Urine Ketones 40 (Negative) mg/dL Urine Blood Negative (Negative) Urine Nitrite Negative (Negative) Ur Leukocyte Esterase Negative (Negative) Urine Test POSITIVE H (NEGATIVE) Chlam trachomat DNA PCR NOT DETECTED (Not Detect.) N.gonorrhoeae DNA (PCR) NOT DETECTED (Not Detect.) External Record Review External record reviewed: Inpatient record, Office record, Outpatient record, Prior outpatient labs, Prior outpatient radiology, Primary care record and Outside ED record All prior labs/ imaging/ EKG and notes that are acceptable in our system reviewed by myself Tests considered The following testing was considered but not selected: labs and ultrasound although patient not having any other complaints and does not have any abdominal pain and normal heart tones therefore not indicated at this time. Prescription Management I considered prescription management with: Other ( Patient will be discharged with Flagyl and yeast medications) Chronic Conditions Patient?s care impacted by: Other ( currently ) Social Determinants Patient?s care significantly limited by Social Determinants of Health including: Low income and Other Social Determinant of Health Discharge Plan Discharge Clinical Impression: Vaginal discharge, Currently Patient Disposition: Home, Self-Care Instructions: Vaginal Discharge (ED) Additional Instructions: you have pending lab results if any are positive you will be contacted within 3-5 days. Return if any new or worsening symptoms. Follow up with her OBGYN/ PCP if he develops any abdominal cramping, vaginal bleeding or gush of fluid you will need to return immediately or go to your closest hospital. Prescriptions: New metronidazole 500 mg tablet 500 mg PO Q12H 7 Days Qty: 14 0RF terconazole 0.8 % cream 1 appful vaginal BEDTIME 3 Days Qty: 20 0RF No Action doxycycline hyclate 100 mg capsule 100 mg PO BID 7 Days Qty: 14 0RF nitrofurantoin monohyd/m-cryst [Macrobid] 100 mg capsule 100 mg PO BID 5 Days Qty: 10 0RF Rx Instructions: must administer with a meal/food ondansetron 4 mg tablet,disintegrating 4 mg PO Q8H PRN (Reason: nausea and vomiting) Qty: 20 0RF fluconazole [Diflucan] 150 mg tablet 150 mg PO DAILY Qty: 1 0RF Rx Instructions: take at end of antibiotics course if you develop a yeast infection metronidazole [Flagyl] 500 mg tablet 500 mg PO BID 7 Days Qty: 14 0RF doxycycline hyclate 100 mg capsule 100 mg PO BID 7 Days Qty: 14 0RF metronidazole 500 mg tablet 500 mg PO BID 7 Days Qty: 14 0RF tramadol 50 mg tablet 50 mg PO Q6H PRN (Reason: pain) Qty: 20 0RF Referrals: Physician,Unknown J [Primary Care Provider] - ( follow-up with your OBGYN/PCP) Interventions: ED Discharge Assessment Last Done: 03/03/23 10:52 Discharge Date/Time: 03/03/23 10:53
[2023-03-03 14:07] LABS: BV Int Neg Control Negative (Negative); BV Int Pos Control Positive (Positive)
== END 2023-03-03 10:53 | disposition home or self-care (01) ==
PROVIDERS: Physician Assistant Medical; Emergency Provider Emergency Medicine
DX: O26.892 Other specified pregnancy related conditions, second trimester (principal); N89.8 Other specified noninflammatory disorders of vagina; Z3A.17 17 weeks gestation of pregnancy
CPT/HCPCS: 0353U; 81003; 81025; 87480; 87510; 87660; 99283; 99284; 99285